=== PATIENT | female | born 1985 | race Caucasian/White ===

== ENCOUNTER 2019-11-16 17:05 | Emergency (ER) | payer MEDICAID, OTHER ==
[~2019-11-16] VITALS: Ht 160 cm; Wt 54.4 kg
[~2019-11-16 17:05] MED LIST: IBUP-974 PO; PREN-385 PO
[2019-11-16 17:11] VITALS: BP 124/76
--- NOTE | 2019-11-16 17:22 | NUR ---
33 Y/O FEMALE C/O RASH X2 DAYS, PT WOKE UP WITH IRRITAED EYES AND GENERALIZED BODY RASH. DENIES ANY NEW MEDICATIONS, FOOD OR LOTIONS. PT STATES SHE SMOKES MARIUJUANA, LAST TIME SHE SMOKED WAS A FEW HOURS AGO. C/O SORE THROAT AND SWOLLEN LYMPHNODES. DENIES ANY SOB, CP, COUGH. REDDENED SCLERA NOTED. VSS. RESP EVEN AND UNLABORED. NKA NO PMH
--- NOTE | 2019-11-16 17:38 | NUR ---
PT AMBULATED TO BED 06
[2019-11-16] MEDS ORDERED: FLUORESCEIN OPTH STRIP 1 MG OP ONE (17:40)
[2019-11-16] MEDS ORDERED: TETRACAINE 1% 2 ML AMP INJ ONE (17:40)
[2019-11-16] MEDS ORDERED: TETRACAINE HCL/PF 0.5% OPTH 4 ML BTL ONE (17:51)
[2019-11-16] MEDS ORDERED: predniSONE 20 MG TAB PO ONE (18:15)
[2019-11-16] MEDS ORDERED: IBUPROFEN 600 MG TAB PO ONE (18:15)
[2019-11-16 18:34] VITALS: BP 124/76
--- NOTE | 2019-11-16 18:34 | NUR ---
Patient discharged with v/s stable. Written and verbal after care instructions given and explained. Patient alert, oriented and verbalized understanding of instructions. Ambulatory with steady gait. All questions addressed prior to discharge. ID band removed. Patient advised to follow up with PMD. Rx of PREDNISONE, BENADRYL, AMOXICILLIN, POLYTRIM given. Patient educated on indication of medication including possible reaction and side effects. Opportunity to ask questions provided and answered.
== END 2019-11-16 18:34 | disposition home or self-care (01) ==
LOC: MED 17:05
DX: J02.9 Acute pharyngitis, unspecified (principal); F17.210 Nicotine dependence, cigarettes, uncomplicated; H11.30 Conjunctival hemorrhage, unspecified eye; H10.9 Unspecified conjunctivitis; I51.9 Heart disease, unspecified; R21 Rash and other nonspecific skin eruption; Z79.899 Other long term (current) drug therapy
CPT/HCPCS: 99283

== ENCOUNTER 2023-12-25 01:20 | Emergency (ER) | payer MEDICAID, OTHER ==
[~2023-12-25] VITALS: Ht 160 cm; Wt 59.0 kg
[~2023-12-25 01:20] MED LIST changes: +ACET-1182 PO; +CIPR500T4 PO; -PREN-385 PO
[2023-12-25 01:24] VITALS: BP 119/71; PULSE 89; RESP 16; TEMP 97.4; O2SAT 99
[2023-12-25 02:02] LABS: BASOPHILS % (AUTO) 0.5 % (0.0-2.0); EOSINOPHILS # (AUTO) 0.1 K/uL (0-0.4); EOSINOPHILS % (AUTO) 1.2 % (0.0-4.0); HEMATOCRIT 36.8 % (36-48); HEMOGLOBIN 12.5 g/dL (12.0-16.0); LYMPHOCYTES # (AUTO) 1.9 K/uL (2.5-16.5); LYMPHOCYTES % (AUTO) 19.5 % (20.5-51.1); MEAN CORPUSCULAR HEMOGLOBIN 29 pg (27-31); MEAN CORPUSCULAR HGB CONC 34 g/dL (33-37); MEAN CORPUSCULAR VOLUME 85.8 fL (80-94); MONOCYTES # (AUTO) 0.5 K/uL (0.8-1.0); MONOCYTES % (AUTO) 5.5 % (1.7-9.3); NEUTROPHILS % (AUTO) 73.3 % (42.2-75.2); PLATELET COUNT (AUTO) 354 K/uL (140-450); RED BLOOD CELL COUNT(AUTO) 4.28 MIL/uL (4.20-5.40); RED CELL DISTRIBUTION WIDTH 13.3 % (11.6-13.7); WHITE BLOOD COUNT (AUTO) 9.5 K/uL (4.8-10.8)
[2023-12-25 02:13] LABS: ANION GAP 12.6 (8-16); CALCIUM 8.7 mg/dL (8.5-10.1); CARBON DIOXIDE 26.9 mmol/L (21-32); CREATININE 0.8 mg/dL (0.6-1.3); POTASSIUM 3.5 mmol/L (3.5-5.1)
[2023-12-25] MEDS ORDERED: IBUP-1842 PO (02:29)
[2023-12-25] MEDS ORDERED: DOXY-690 PO (02:29)
[2023-12-25 02:33] VITALS: BP 119/71; PULSE 89; RESP 16; TEMP 97.4; O2SAT 99
== END 2023-12-25 02:33 | disposition home or self-care (01) ==
LOC: MED 01:20
DX: L03.114 Cellulitis of left upper limb (principal); Z86.79 Personal history of other diseases of the circulatory system; Z79.1 Long term (current) use of non-steroidal anti-inflammatories (NSAID); Z79.2 Long term (current) use of antibiotics; Z79.899 Other long term (current) drug therapy
CPT/HCPCS: 36415; 73090; 76536; 80048; 85025; 99284